=== PATIENT | male | born 1945 | race Caucasian/White ===

== ENCOUNTER → 2017-05-26 | Outpatient (CLI) | payer BC, OTHER ==
[~2017-05-26] MED LIST: ADULT LOW DOSE81 MG; ADVAIR 100-501 EACH; CIPROFLOXACIN500 M1 PO; FLOMAX PO; LIPITOR80 MG; PERCOCET 5-3251 EACH PO; PLAVIX 75 MG TA75 MG; TOPROL XL50 MG; VERAMYST10 GM; ZETIA10 MG
== END ==
LOC: HYPER 06:42
DX: L90.5 Scar conditions and fibrosis of skin (principal); L82.1 Other seborrheic keratosis; L81.4 Other melanin hyperpigmentation; J45.909 Unspecified asthma, uncomplicated; E78.5 Hyperlipidemia, unspecified; I10 Essential (primary) hypertension; I25.2 Old myocardial infarction; Z87.891 Personal history of nicotine dependence; Z72.89 Other problems related to lifestyle

== ENCOUNTER → 2017-06-08 | Outpatient (CLI) | payer BC, OTHER | LOC: HYPER 07:03 | DX: L90.5 Scar conditions and fibrosis of skin (principal); L82.1 Other seborrheic keratosis; E78.5 Hyperlipidemia, unspecified; I10 Essential (primary) hypertension; I25.2 Old myocardial infarction; J45.909 Unspecified asthma, uncomplicated; Z87.891 Personal history of nicotine dependence; Z72.89 Other problems related to lifestyle ==